=== PATIENT | female | born 1945 | race Caucasian/White ===

== ENCOUNTER 2017-05-01 05:44 | Inpatient (IN) | payer MEDICARE, OTHER ==
[2017-04-30 11:23] LABS: HEMATOCRIT 35.7 % (36.0-48.0); HEMOGLOBIN 11.4 g/dL (12.0-16.0)
[2017-04-30 11:33] LABS: CALCIUM, SERUM 9.3 MG/DL (8.5-10.4); CHLORIDE, SERUM 104 MMOL/L (96-112); CO2 (CARBON DIOXIDE) 28 MMOL/L (24-34); CREATININE 0.73 MG/DL (0.55-1.02); GFR AFRICAN AMERICAN 97 ML/MIN (>=60); GFR NON AFRICAN AMERICAN 84 ML/MIN (>=60); GLUCOSE, SERUM 81 MG/DL (60-99); POTASSIUM, SERUM 4.7 MMOL/L (3.5-5.3)
[2017-04-30 11:34] LABS: BUN (BLOOD UREA NITROGEN) 21 MG/DL (6-23); SODIUM, SERUM 137 MMOL/L (135-148)
--- NOTE | ~2017-05-01 | OP ---
Record Of Operation [facility] [address] [place]. [address] NAME: SHANNAN LOCK : 47 STATUS : ADM IN PAT#: [id number] AGE: 71 ADM/REG DATE : 05/01/17 MR#: [id number] REPORT SERV DATE: 05/03/17 DICTATED BY: GRADY THOMAS II DATE: 05/01/17 REPORT STATUS : Draft TRANSCRIBED BY: MODL DATE: 05/01/17 DATE OF PROCEDURE: 05/01/2017 PREOPERATIVE DIAGNOSES: 1. L4-L5 persistent stenosis. 2. L5-S1 stenosis. 3. L4-L5 history of laminectomy secondary to severe facet arthrosis and stenosis. 4. Right lower extremity radiculopathy with low back pain. POSTOPERATIVE DIAGNOSES: 1. L4-L5 persistent stenosis. 2. L5-S1 stenosis. 3. L4-L5 history of laminectomy secondary to severe facet arthrosis and stenosis. 4. Right lower extremity radiculopathy with low back pain. PROCEDURE: 1. Lumbar laminectomy and facetectomy, L4-L5 (revision). 2. Lumbar laminectomy and facetectomy, L5-S1. 3. Interbody arthrodesis, L4-L5, L5-S1. 4. Application of prosthetic devices L4-L5, L5-S1. 5. Posterolateral arthrodesis, L4-L5 and L5-S1. 6. Posterior segmental instrumentation, L4-L5, L5-S1. 7. Use of local autograft, allograft substitute, and bone morphogenic protein. 8. Use of the microscope and stereotactic spinal imaging. SURGEON: Grady Thomas M.D. FLUIDS: 1600 mL LR. ESTIMATED BLOOD LOSS: 200 mL. DRAIN: One drain. COMPLICATIONS: No complications. IMPLANTS: Alphatec. PREOPERATIVE HISTORY: This is a friendly 71-year-old female, who did well very well following her neck surgery. She has had back surgery in the past. A minimally invasive surgery was done at L4-L5. She did well for a while, but now, she is having recurrent leg pain which appears to be from the facet. We removed approximately 1/3rd of the facet previously. The facet was overall massive and appears that this simply is going to require a more aggressive decompression to adequately decompress the L4 and L5 nerve roots. She does have some discogenic low back pain which appears to be very from the L5-S1 level as best we could tell. There is also some facet arthrosis causing some stenosis at L5-S1 consistent with her L5 radiculopathy. Overall, I felt that given her failure of Record Of Operation [facility] [address] [address] NAME: SHANNAN LOCK : 47 STATUS : ADM IN PAT#: [id number] AGE: 71 ADM/REG DATE : 05/01/17 MR#: [id number] REPORT SERV DATE: 05/03/17 DICTATED BY: GRADY THOMAS II DATE: 05/01/17 REPORT STATUS : Draft TRANSCRIBED BY: MODParvin DATE: 05/01/17 nonoperative care, the surgery was a reasonable option, especially to decrease the leg pain. I advised her that the back pain improvement was going to be a possibility, but not given. We discussed the rates of success versus failure to decrease back pain and leg pain respectively. DESCRIPTION OF PROCEDURE: After informed consent was obtained, the patient was brought to the operating room at her request and general anesthesia achieved. She was placed in prone position and the back was prepped and draped in a sterile fashion. The minimally invasive stereotactic pin was placed on the left at the iliac crest and the intraoperative CT scan completed. At this point, the CT scan was completed and stereotactic guidance used throughout the case. The minimally invasive incision was now performed on the right at L4- L5 and L5-S1 and the minimally invasive quadrant retractor was placed and the microscope brought into place. Under microscopic visualization, the transverse processes were dissected upon at L4 and L5 at the sacral ala. The medial to lateral blades were also used followed by initiation of the revision facetectomy at L4-L5. The pars was now removed. Both facets were simply massive. Both the inferior and superior facets were causing severe neural compression. The L4 and L5 nerve roots were now aggressively decompress with the complete facetectomy. The interbody arthrodesis was initiated with diskectomy at L4-L5. The endplates were prepared with the pituitary rongeurs, Kerrison rongeurs, and curettes. The area was now irrigated and punctate bleeding bone identified. The bone quality was reasonable. Local autograft, allograft substitute, and bone morphogenic protein were placed to the anterior column. The prosthetic device was then well placed also into the anterior column. Next, we performed a similar procedure at L5-S1 where upon the facets were removed and the including the removal of the majority of the pars. The L5 nerve root did exhibit some moderate compression in the foraminal zone. The S1 nerve root did not exhibit severe compression. At this point, the interbody arthrodesis was initiated. Initially, I thought the space could be auto-fused. However, once we incised the disk space,. There was obvious motion. The partha and curettes were used to distract the disk space and remove disc and cartilage. Irrigation was performed. The prosthetic device was trialed and chosen and this also helped distract the disk space and the neuro foramen. Next, the pedicle screws were applied into L4-L5 and S1 on the right followed by percutaneous screws on the left. The repeat CT scan confirmed acceptable placement of the implants. The rods were then well placed and tightened. Next, the decortication was performed on the right and the transverse processes. The transverse processes at L4-L5 and sacral ala were well decorticated and local autograft and allograft substitute and bone morphogenic protein were placed. A deep drain was placed followed by standard closure and the patient was extubated and transferred to PACU in stable Record Of Operation [address] [address] NAME: SHANNAN LOCK : 47 STATUS : ADM IN [facility]#: [id number] AGE: 71 ADM/REG DATE : 05/01/17 MR#: [id number] REPORT SERV DATE: 05/03/17 DICTATED BY: GRADY THOMAS II DATE: 05/01/17 REPORT STATUS : Draft TRANSCRIBED BY: MARICEL DATE: 05/01/17 condition. SOTERO/MARICEL Grady Thomas II, M.D. / [id number] CC: Jayjay Tinajero II, MD [place], [place]
--- NOTE | ~2017-05-01 | DS ---
Discharge Summary [facility] [address] [facility]. [address] NAME: SHANNAN LOCK : 47 STATUS : DIS IN PAT#: [id number] AGE: 71 ADM/REG DATE : 05/01/17 MR#: [id number] REPORT SERV DATE: 05/21/17 DICTATED BY: GRADY THOMAS II DATE: 05/17/17 REPORT STATUS : Draft TRANSCRIBED BY: MARICEL DATE: 05/17/17 Data Collection from hospitalization DISCHARGE DIAGNOSES: 1. L4-L5 persistent stenosis. 2. L5-S1 stenosis. 3. L4-L5 history of laminectomy secondary to severe facet arthrosis and stenosis. 4. Right lower extremity radiculopathy with low back pain. 5. Hypertension. 6. Chronic kidney disease. 7. Chronic urinary tract infections. 8. Eczema. 9. Gastroesophageal reflux disease. 10.Osteoarthritis. 11.Heart murmur. CONSULTATIONS: None. PROCEDURES PERFORMED: Lumbar laminectomy and facetectomy L4-L5 (revision); lumbar laminectomy and facetectomy L5-S1; interbody arthrodesis L4-L5 and L5-S1; application of prosthetic devices L4-L5 and L5-S1; posterolateral arthrodesis L4-L5 and L5-S1; posterior segmental instrumentation L4-L5 and L5-S1; use of local autograft, allograft substitute, and bone morphogenic protein; use of microscope and stereotactic spinal imaging, 05/01/2017. PATHOLOGY: Bone and soft tissue, lumbar spine-nonspecific degenerative changes. DISCHARGE MEDICATIONS: 1. Miacalcin nasal spray one spray nasally daily. 2. Vitamin D 2000 units daily. 3. Celexa 20 mg daily. 4. Plavix 75 mg daily. 5. Dexilant 30 mg daily. 6. Valium 2 mg every six hours as needed. 7. Flonase nasal spray one spray nasally daily as needed. 8. Neurontin 900 mg three times a day. 9. Hydrochlorothiazide 25 mg daily as needed. 10.Toprol-XL 100 mg daily. 11.Naprosyn 500 mg every other day. 12.Roxicodone 10 mg every four hours as needed. 13.Prempro 1 tablet daily. CONDITION AT DISCHARGE: Stable. DISPOSITION: The patient was discharged to home on a regular diet with activities as instructed. She is follow up with me on 05/25/2017. HOSPITAL COURSE: This is a 71-year-old female who had complained of cervical, thoracic, and lumbar spine related symptoms. The location of her symptoms is in the mid and low back with Discharge Summary [place] [id number] [facility] [place]. [address] NAME: SHANNAN LOCK : 49 STATUS : DIS IN PAT#: [id number] AGE: 71 ADM/REG DATE : 05/01/17 MR#: [id number] REPORT SERV DATE: 05/21/17 DICTATED BY: GRADY THOMAS II DATE: 05/17/17 REPORT STATUS : Draft TRANSCRIBED BY: MODParvin DATE: 05/17/17 radiation into the bilateral lower extremities. She also complained of right hand numbness and tingling. The patient has persistent stenosis at L4-L5 and stenosis at L5-S1. She also has right lower extremity radiculopathy with low back pain. Treatment options were discussed, and it was elected to proceed with surgical intervention. She was admitted to the hospital at this time for further evaluation and treatment. Upon admission, she was taken to the operating room, where she underwent the above-mentioned procedure. She tolerated this well, and there were no complications. On postop day #1, she was evaluated by Physical Therapy. She was doing well. She had already been out of bed. Her pain was well controlled. We encouraged her to mobilize. Over the next couple of days, she remained stable. She continued to progress. Discharge planning was performed. On 05/05/2017, she was eager to go home. She continued to do well postoperatively. Discharge instructions were given due to her improved and stable condition. She was discharged to home with the above-stated instructions. Information collected by: Katiana Blevins I submit the above information as my discharge summary. ELIJAH/MARICEL Grady Thomas II, M.D. / [id number] CC: Jayjay Tinajero II, MD
[~2017-05-01 05:44] MED LIST: ACET500CAP PO; ALPHAGAN OP; ASAB PO; AUG500 PO; BIAXIN5 PO; CALCIT NAS; CALTRA600D PO; CELEXA10 PO; CELEXA20 PO; CHLORZOXAZON500 MG OR; FLEX PO; FLONASE NAS; FLUTI NAS; FORTICAL200 MG/ACT NAS; HCTZ25B PO; HYDROCHLOROT25 MG PO; IMOD PO; KAPIDEX30 MG PO; KAPIDEX60 MG PO; KLONO1 PO; KLONO5 PO; MEDROLPAK4 PO; METHOC750B PO; MOBIC15 MG PO; NAP500 PO; NEUR300 PO; NORV5 PO; PARAFON FORTE500 MG PO; PERCOCET1 TA4 PO; PLAVIX PO; PREMPRO PO; PREMPRO1 TAB PO; PRIN20 PO; PRIN5 PO; ROXICODONE15 MG PO; ROXICODONE30 MG PO; TOPXL50 PO; TYLENOL ARTH650 MG PO; ULTRAM50 PO; V2 PO; VITAMIN D2000 UNIT PO; ZANTAC150 MG PO
[2017-05-02] MEDS ORDERED: MIACALCIN NAS (14:24)
[2017-05-05] MEDS ORDERED: V2 PO (09:31)
[2017-05-05] MEDS ORDERED: OXYCOD PO (09:32)
== END 2017-05-05 11:21 | disposition home or self-care (01) | DRG 460 ==
LOC: SDC/OF 05:44 → 3SO 11:56
PROVIDERS: Orthopaedic Surgery
PROC: 0SG00AJ Fusion of Lumbar Vertebral Joint with Interbody Fusion Device, Posterior Approach, Anterior Column, Open Approach (ICD-10-PCS; principal; 2017-05-01 06:45)
PROC: 0SG30AJ Fusion of Lumbosacral Joint with Interbody Fusion Device, Posterior Approach, Anterior Column, Open Approach (ICD-10-PCS; 2017-05-01 06:45)
PROC: 4A11X4G Monitoring of Peripheral Nervous Electrical Activity, Intraoperative, External Approach (ICD-10-PCS; 2017-05-01 06:45)
DX: M51.16 Intervertebral disc disorders with radiculopathy, lumbar region (principal)
CPT/HCPCS: 80048; 82962; 85014; 85018; 87641; 88304; 88311; 97116-GP; 97161-GP; A9270-GY; C1713; G8978-CJ-GP; G8979-CH-GP; J0690; J2250; J2270; J2370; J2405; J2710; J3010; J3370